=== PATIENT | female | born 1990 | race Caucasian/White ===

== ENCOUNTER → 2018-06-15 16:27 | Observation (INO) ==
[2018-06-15 14:57] LABS: Bilirubin,Urine Negative (Negative); Blood,Urine Negative (Negative); Clarity,Urine Cloudy (Clear); Color,Urine Yellow (Yellow); Glucose,Urine (UA) Normal (Normal); Ketones,Urine Negative (Negative); Leukocyte Esterase,Urine Trace (Negative); Nitrite,Urine Negative (Negative); Protein,Urine Negative (Neg-Trace); Specific Gravity,Urine 1.008 (1.010-1.025); Urobilinogen,Urine Normal (Normal)
[2018-06-15 15:00] LABS: Hyaline Casts,Urine None Seen per lpf (None-Few); RBC,Urine 0-3 per hpf (0-3); WBC,Urine 0-3 per hpf (0-3)
[2018-06-15 15:08] LABS: Amphetamine Screen,Urine Negative ng/mL (Cutoff=1000); Barbiturate Screen,Urine Negative ng/mL (Cutoff=200); Benzodiazepines Screen,Urine Negative ng/mL (Cutoff=200); Cannabinoid Screen,Urine Positive ng/mL (Cutoff = 50); Cocaine Screen,Urine Negative ng/mL (Cutoff= 300); Opiate Screen,Urine Negative ng/mL (Cutoff=300); Phencyclidine Screen,Urine Negative ng/mL (Cutoff=25)
[2018-06-15 15:35] LABS: Squamous Epithelial Cell,Urine Moderate per lpf (None-Few)
[2018-06-15 15:36] LABS: Bacteria,Urine Moderate per hpf (None-Few)
--- NOTE | 2018-06-15 16:25 | OB/GYN Progress Note ---
Date of Encounter: 06/15/18 Time of Encounter: 16:19 - Assessment and Plan (1) Morbidly obese Current Visit: Yes Status: Acute (2) complicated by subutex maintenance, antepartum Current Visit: Yes Status: Acute (3) Marijuana abuse Current Visit: Yes Status: Acute (4) 35 weeks gestation of Current Visit: Yes Status: Acute Discharge home with labor precautions. (5) Tobacco abuse Current Visit: Yes Status: Acute (6) Pelvic pressure in , antepartum Current Visit: Yes Status: Acute No contractions, VB, LOF. Comfort measures discussed. Discharge home with precautions. Subjective - Subjective Principal diagnosis: Vaginal pressure Interval history: 28 y/o presenting at 35w3d with c/o pelvic pressure that she states she has had for over a week. Denies LOF, VB, or contractions. Reports good FM. Antepartum ROS: new complaints, movement normal, no loss of fluid, no vaginal bleeding, no contractions Objective - Vital Signs Vital Signs: Intake and Output 06/15/18 06/15/18 06/15/18 07:59 15:59 23:59 Other: Weight 168 kg Patient Weight 06/15/18 23:59 Weight 168 kg - Exam FHR: category 1 FHR comments: NST reactive, FHR baseline 135bpm Auscultation: bilateral: normal Abdomen: Present: normal appearance, soft, gravid - Labs Labs: Abnormal lab results Urine Clarity Cloudy (Clear) A 06/15/18 14:46 Ur Specific [place] 1.008 (1.010-1.025) L 06/15/18 14:46 Ur Leukocyte Esterase Trace (Negative) H 06/15/18 14:46 Ur Squamous Epith Cells Moderate per lpf (None-Few) H 06/15/18 14:46 Urine Bacteria Moderate per hpf (None-Few) H 06/15/18 14:46 Ur Culture Indicated? YES (NO) A 06/15/18 14:46 U Marijuana (THC) Screen Positive ng/mL (Cutoff = 50) H 06/15/18 14:46
== END | disposition home or self-care (01) ==
LOC: 1NENULAB
PROVIDERS: ADMIT Registered Nurse; ATTEND Registered Nurse

== ENCOUNTER 2018-07-13 11:08 | Inpatient (IN) ==
--- NOTE | 2018-07-13 11:52 | Anesthesia Evaluation PreOp ---
Date of Encounter: 07/13/18 Time of Encounter: 11:50 - Past History Planned Operation: c section Cardiac History: Denies any Significant Hx Pulmonary History: Smoker (2 ppd), Pack/yr (12) PHYSICAL THERAPY ASSISTANT History: Seizures (3 years ago, not reported to physician) Other Medical History: Thyroid, GERD Anesthesia History: Past Anesthesia (BMT Adenoids) : Yes Test: Positive Alcohol Use: none Drug use: opiates (subutex 12 months), marijuana (daily) Medications and Allergies Albuterol Sulfate [Proair Respiclick] 1 - 2 puff IH Q4-6H PRN 10/03/15 [History] Gabapentin [Neurontin] 600 mg PO QID 10/03/15 [History] Levothyroxine [Synthroid] 150 mcg PO QAM 10/03/15 [History] Diclegis Dr 10-10 mg Tablet 2 tab PO DAILY 06/15/18 [History] Folic Acid 4 tab PO DAILY 06/15/18 [History] Vitamins 1 tab PO DAILY 06/15/18 [History] Subutex 4 mg SL DAILY 06/15/18 [History] Subutex 8 mg SL BID 06/15/18 [History] Allergy/AdvReac Type Severity Reaction Status Date / Time tramadol AdvReac Itching Verified 10/03/15 20:14 - Meds/Allergy Pre-op Review Medications Reviewed: Yes Allergies Reviewed: Yes Beta Blockers on Current Med List: No Anesthesia Exam see nsg note Height: 5'8" Weight: 166 kg NPO (# of Hours): 8 Pain Scale: 2 Pain Scale Used: Numeric (1 - 10) - HEENT Pupil (Motor): Pupils equal Mallampati: III Teeth: Missing, Poor dentition Oral Opening: Greater than 3 - PHYSICAL THERAPY ASSISTANT LOC: Oriented PHYSICAL THERAPY ASSISTANT Motor: Normal RUE, Normal LUE, Normal RLE, Normal LLE, Normal Face PHYSICAL THERAPY ASSISTANT Sensory: Normal: RUE, LUE, RLE, LLE, Face - Cardiac Rhythm: Regular Murmur: None - Pulmonary Breath Sounds: bilateral Rhonchi Respiratory Effort: Symmetrical Anesthesia Assess/Plan ASA Score: 3 (MO, smoker, thyroid) Level of consciousness: Cooperative Anesthetic Plan: Spinal Autologous Blood: No Monitoring Plan: Standard Monitors Recovery Plan: PACU (risks discussed questions answered, consented)
[2018-07-13] MEDS ORDERED: Ipratropium/Albuterol Neb 3 ML IH ONE (12:01)
[2018-07-13] MEDS ORDERED: Famotidine 20 MG/2 ML VIAL IVP ONE (12:24)
[2018-07-13] MEDS ORDERED: Metoclopramide 10 MG/2 ML VIAL IVP ONE (12:24)
[2018-07-13] MEDS ORDERED: CeFAZolin Syr 3,000MG/30 ML 3,000 MG/30 ML SYRINGE IVPB ONE (12:24)
[2018-07-13] MEDS ORDERED: Ringers Solution, Lactated 1,000 ML IVC ONE (12:24)
[2018-07-13] MEDS ORDERED: Ringers Solution, Lactated 1,000 ML IVC SCH (12:30)
[2018-07-13] MEDS ORDERED: Ringers Solution, Lactated 1,000 ML ONE (12:36)
--- NOTE | 2018-07-13 13:16 | OB/GYN History & Physical ---
Date of Encounter: 07/13/18 Time of Encounter: 13:14 Assessment and Plan (1) 39 weeks gestation of Current visit: Yes Status: Acute (2) Gestational diabetes Current visit: Yes Status: Acute Good BS control Qualifiers: Gestational diabetes mellitus control: diet-controlled Trimester: third trimester Qualified Code(s): O24.410 - Gestational diabetes mellitus in , diet controlled (3) complicated by subutex maintenance, antepartum Current visit: No Status: Acute History of Present Illness Chief complaint: Here for repeat and BPS HPI: Ms. Moeller is a 28 year old female female presents for repeat and BPS. Pt's preg complicated by h/o narcotics addiction on Suboxone, hypothyroid and increased BMI with gestational DM. She has had good BS control. She had normal level 2 u/s. Past Med Surg Social Fam HX - Past Medical History Source: patient Medical history: hyperlipidemia, thyroid disease, other Additional medical history: HYPOTHYROID, HIGH CHOLESTEROL, Psychiatric history: no psych history - Past Surgical History Additional surgical history: TUBES IN EARS, ADENOIDS REMOVED - Social History Smoking Status: Current every day smoker Packs per day: 2 Smokeless Tobacco Status: No Alcohol use: none Drug use: opiates, marijuana - Family History Mother Living Status: Still Living Hx Family Cardiac Disorders: Yes Hx Family Endocrine Disorder: Yes (Thyroid, DM) Hx Family Medical Disorders: Yes (Bipolar, anxiety, depression) Obstetrical History - Pregnancies : 4 Medications and Allergies Albuterol Sulfate [Proair Respiclick] 1 - 2 puff IH Q4-6H PRN 10/03/15 [History] Gabapentin [Neurontin] 600 mg PO QID 10/03/15 [History] Levothyroxine [Synthroid] 150 mcg PO QAM 10/03/15 [History] Diclegis Dr 10-10 mg Tablet 2 tab PO DAILY 06/15/18 [History] Folic Acid 4 tab PO DAILY 06/15/18 [History] Vitamins 1 tab PO DAILY 06/15/18 [History] Subutex 8 mg SL BID 06/15/18 [History] Allergy/AdvReac Type Severity Reaction Status Date / Time cephalexin [From Keflex] AdvReac Difficulty Verified 07/13/18 12:27 Breathing tramadol AdvReac Itching Verified 10/03/15 20:14 Exam - Constitutional Constitutional: well developed, well nourished - HEENT HEENT: EOMI, PERRL - Neck Neck exam: full ROM - Lungs Respiratory exam: CTAB - Cardiovascular Cardiovascular exam: RRR - Extremities Extremities exam: full ROM Deep Tendon Reflex Grade: 2+ Normal Results All other labs normal.
[2018-07-13 13:39] LABS: Basophils # 0.1 K/mcL (0.0-0.2); Basophils % 0.6 %; Eosinophils # 0.1 K/mcL (0.0-0.6); Eosinophils % 0.6 %; Hematocrit 39.5 % (35.3-44.9); Hemoglobin 13.4 g/dL (11.5-15.4); Immature Granulocytes % 0.9 % (0-4); Lymphocytes # 2.8 K/mcL (0.6-4.6); Lymphocytes % 26.6 %; Mean Corpuscular HGB Conc 33.9 g/dL (31.6-35.5); Mean Corpuscular Hemoglobin 28.4 pg (28.0-33.3); Mean Corpuscular Volume 83.7 fL (83.0-100.0); Mean Platelet Volume 10.5 fL (9.4-12.4); Monocytes # 0.5 K/mcL (0.0-1.3); Monocytes % 4.7 %; Neutrophils # 6.9 K/mcL (1.6-8.9); Platelet Count 285 K/mcL (140-400); Red Blood Count 4.72 M/mcL (3.82-4.97); Red Cell Distribution Width 13.7 % (11.5-14.5); Segmented Neutrophils % 66.6 %
[2018-07-13] MEDS ORDERED: *HR* OxyCODONE Immed Rel 5 MG TABLET PO PRN (13:40)
[2018-07-13] MEDS ORDERED: *HR* Promethazine 25 MG/ML VIAL IVP PRN (13:40)
[2018-07-13] MEDS ORDERED: *HR* FentaNYL (PF) 100 MCG/2 ML VIAL IVP PRN (13:40)
--- NOTE | 2018-07-13 13:43 | Anesthesia Procedures ---
Date of Encounter: 07/13/18 Time of Encounter: 15:05 Procedures: Anesthesia - Epidural/Spinal Patient ID/Chart reviewed: Yes Patient examined: Yes OB Eval: Gestational age: 39 OB Eval: : 5 OB Eval: Hx Para: 4 OB Eval: Dilated at (cm): 2 OB Eval: Contractions: Non-stressed pattern Consent Obtained: Yes Supplemental Oxygen: Nasal Cannula Supplemental Oxygen Rate (L/min): 3 Site Prep: Aseptic Technique, Sterile prep and drape, 0.5% Chlorhexidine/Alcohol Patient position: upright Local Anesthetic: Lidocaine 1% Amount of Local Anesthetic used: 3 Interspace Used: L2-L3 Loss of Resistance (AIDEN): No Blood: No CSF: Yes Paresthesia: No Spinal Needle Gauge: 22 Spinal Dose: marcaine 12, duramorph 0.25, fentanyl 10 mcg Procedure: aseptic, hosea well, effective Vitals + FHT's: 130/80 114 fht 125
[2018-07-13] MEDS ORDERED: Clindamycin 900 MG/50 ML 900 MG/50 ML IV.SOLN IVPB ONE (13:49)
[2018-07-13 14:03] LABS: Amphetamine Screen,Urine Negative ng/mL (Cutoff=1000); Barbiturate Screen,Urine Negative ng/mL (Cutoff=200); Benzodiazepines Screen,Urine Negative ng/mL (Cutoff=200); Cannabinoid Screen,Urine Positive ng/mL (Cutoff = 50); Cocaine Screen,Urine Negative ng/mL (Cutoff= 300); Opiate Screen,Urine Negative ng/mL (Cutoff=300); Phencyclidine Screen,Urine Negative ng/mL (Cutoff=25)
[2018-07-13] MEDS ORDERED: Acetaminophen IV 1,000 MG/100 ML INFUS..BTL IVPB ONE (15:07)
[2018-07-13] MEDS ORDERED: *HR* Morphine Sulfate/PF 10 MG/10 ML AMPUL ONE (15:14)
[2018-07-13] MEDS ORDERED: *HR* Oxytocin 10 UNIT/ML VIAL IM ONE (15:14)
[2018-07-13] MEDS ORDERED: Lidocaine -MPF 2% 5 ML VIAL ONE (15:14)
[2018-07-13] MEDS ORDERED: *HR* Phenylephrine 10 MG/ML VIAL ONE (15:14)
[2018-07-13] MEDS ORDERED: *HR* FentaNYL (PF) 100 MCG/2 ML VIAL ONE ×3 (15:14→15:37)
[2018-07-13] MEDS ORDERED: *HR* Propofol 200 MG/20 ML VIAL IVP ONE (15:38)
--- NOTE | 2018-07-13 16:30 | OB/GYN Procedure Note ---
Section - Date of procedure: 07/13/18 Preop diagnosis: breech, other (Desires permanent sterilization) Post-op diagnosis: same Procedure: primary low transverse, bilateral tubal ligation Surgeon: Ever Stokes Blood Loss: 500 Was there an bankruptcy legal assistant present: No Anesthesia Type: Spinal section complications: none Disposition: L&D Recovery Room - (s) A Infant Delivery Date: 07/13/18 Delivery Time: 16:31 Presentation: breech Gender: Male Viability: Viable Pounds: 8 Ounces: 2 at 1 minute: 8 at 5 minutes: 9 Placenta: spontaneous Cord: 3 umbilical vessels - Narrative Narrative: Patient is a 28-year-old 4 para 2 female presents at 39 weeks gestation with breech infant large for gestational age. She is here today for primary section as well as tubal ligation she was aware operative risks permanence of the tubal and signed appropriate consent. Description procedure: Patient was taken operating room where spinal anesthesia was administered. She is prepped draped in usual sterile fashion. Bladder was drained of clear urine with Vaughn catheter. Scalpel was used to make a incision Pfannenstiel manner from the anterior superior iliac spine on the left of the right I did state above the panniculus fold however I did get somewhat lower than usual to stay away from several skin sores she had. This was taken down the rectus fascia which was incised the midline. Fascial incision was extended bilaterally. Plane was developed and rectus muscle superiorly and distally rectus muscle divided midline peritoneum was entered sharp blade. Bladder blade was placed and bladder flap was developed along the lower uterine segment. Scalpel was used to make a low transverse uterine incision which was extended bluntly bilaterally. Membranes were ruptured of clear fluid and infant was delivered from breech presentation. Infant did initially try to get her back down transverse however was able to rotate to breech. It was delivered from yudelka breech presentation keeping head flexed at the delivery. Cord was clamped and cut oropharynx nasopharynx were suctioned of clear fluid and was taken to the warmer. weight was found to be 8 lbs. 10 oz. Apgars of 8 at 1 minute and 9 at 5 minutes. Placenta was then delivered manually without difficulty. Uterus was closed 0 Vicryl running lock stitch. Second emptying layer was placed for most of the first layer to obtain hemostasis. Approximately 3 cm segment of each fallopian tube was double ligated with oh plain catgut suture and 3 similar segment of each tube was resected. Fascia was closed with oh loop PDS in a running manner. After closure the fascia again irrigation was performed hemostasis was ensured. Deep subcutaneous tissue was reapproximated with 0 plain catgut suture in interrupted manner. Skin edges reapproximated with chapis. All sponge and counts are correct patient was taken recovery in good condition.
[2018-07-13] MEDS ORDERED: SODIUM CHLORIDE 0.9% IVPB ONE (17:00)
[2018-07-13] MEDS ORDERED: GENTAMICIN IVPB ONE (17:00)
[2018-07-13] MEDS ORDERED: Oxytocin 20 units/ LR 1000 mL 20 UNIT/1,000 ML BAG IVC ONE (17:01)
[2018-07-13] MEDS ORDERED: Sennosides 8.6 MG TABLET PO PRN (18:32)
[2018-07-13] MEDS ORDERED: Ondansetron 4 MG/2 ML VIAL IVP PRN (18:32)
[2018-07-13] MEDS ORDERED: 0.9 % Sodium Chloride 1,000 ML IVC SCH (18:32)
[2018-07-13] MEDS ORDERED: Oxytocin 20 units/ LR 1000 mL 20 UNIT/1,000 ML BAG IVC SCH ×2 (18:32)
[2018-07-13] MEDS ORDERED: Metoclopramide 10 MG/2 ML VIAL IVP PRN (18:32)
[2018-07-13] MEDS: Acetaminophen 325 MG TABLET PO PRN (20:01)
[2018-07-13] MEDS: Azithromycin 250 MG TABLET PO SCH (20:01)
[2018-07-13] MEDS: Gabapentin 300 MG CAPSULE PO SCH (20:01)
--- NOTE | 2018-07-13 20:11 | Anesthesia Evaluation Post Op ---
Date of Encounter: 07/13/18 Time of Encounter: 20:09 - Vital Signs Vital Signs: Vital Signs/O2 Sat, Most Current Pulse Resp BP Pulse Ox 98 16 125/81 95 07/13/18 18:40 07/13/18 18:40 07/13/18 18:40 07/13/18 18:40 - Lungs Lungs: Rhonchi - Airway Airway: Non-obstructed - Cardiovascular Regular Rate - Mental Status Mental Status: Alert & Oriented, Answers Appropriately - Pain Pain Scale: 5 (meds ordered per Dr Cantu) Pain Scale used: Numeric (1 - 10) - Nausea Vomiting Nausea Vomiting: Not Present - Hydration Hydration: NPO - Discharge PostOp Status: Discharge Patient to home (fully awake no anesthetic complications)
[2018-07-13] MEDS ORDERED: NON-FORMULARY MEDICATION 1 EACH EACH (Subutex 8 MG) SL SCH (21:00)
[2018-07-13] MEDS: *HR* Buprenorphine HCl 2 MG SUBLINGUAL TABLET SL SCH (21:30)
[2018-07-14 05:45] LABS: Basophils # 0.1 K/mcL (0.0-0.2); Basophils % 0.4 %; Eosinophils % 0.2 %; Hematocrit 32.3 % (35.3-44.9); Immature Granulocytes % 0.4 % (0-4); Lymphocytes % 14.4 %; Mean Corpuscular HGB Conc 33.4 g/dL (31.6-35.5); Mean Corpuscular Hemoglobin 28.3 pg (28.0-33.3); Mean Corpuscular Volume 84.6 fL (83.0-100.0); Mean Platelet Volume 10.6 fL (9.4-12.4); Monocytes # 0.8 K/mcL (0.0-1.3); Monocytes % 5.5 %; Neutrophils # 10.8 K/mcL (1.6-8.9); Platelet Count 251 K/mcL (140-400); Red Blood Count 3.82 M/mcL (3.82-4.97); Segmented Neutrophils % 79.1 %
[2018-07-14 05:49] LABS: Hemoglobin 10.8 g/dL (11.5-15.4)
[2018-07-14] MEDS: Acetaminophen 325 MG TABLET PO PRN (05:59)
[2018-07-14] MEDS: Ibuprofen 600 MG TABLET PO PRN ×3 (05:59→20:29)
[2018-07-14] MEDS: Gabapentin 300 MG CAPSULE PO SCH ×4 (08:46→20:28)
[2018-07-14] MEDS: Prenatal Vit/FA 1 EACH TABLET PO SCH (08:46)
[2018-07-14] MEDS: *HR* Buprenorphine HCl 2 MG SUBLINGUAL TABLET SL SCH ×3 (08:48→20:29)
--- NOTE | 2018-07-14 09:18 | OB/GYN Progress Note ---
Date of Encounter: 07/14/18 Time of Encounter: 09:14 - Assessment and Plan (1) delivery delivered Current Visit: Yes Status: Acute Continue routine /postop care Anticipate discharge home tomorrow (2) complicated by subutex maintenance, antepartum Current Visit: Yes Status: Acute (3) Tobacco abuse Current Visit: Yes Status: Acute Subjective - Subjective Principal diagnosis: S/P repeat C/S Interval history: S/P RC/S Day 1 Pain is well controlled - currently on Subutex from an outside clinic; encouraged patient to contact provider for pain control prior to discharge Lochia light with occasional clot Tolerating regular diet; passing flatus Voiding without difficulty VSS Anticipate discharge home tomorrow POC per consult with Dr Galarza Patient reports: appetite normal, voiding normally, pain well controlled, ambulating normally [place]: doing well, bottle feeding Objective - Vital Signs Latest vital signs: Vital Signs Temp Pulse Resp BP Pulse Ox 07/14/18 08:10 97.8 F 92 12 105/74 97 07/14/18 07:57 16 07/14/18 06:10 97.6 F 100 16 102/72 96 07/14/18 00:50 98.3 F 106 14 96/67 94 07/13/18 22:20 98.5 F 110 14 94/73 95 07/13/18 21:15 98.6 F 103 14 99/67 94 07/13/18 20:00 97.6 F 106 16 131/67 93 07/13/18 19:25 97.5 F L 90 16 131/67 93 07/13/18 18:40 98 16 125/81 95 Intake and Output 07/13/18 07/14/18 07/14/18 23:59 07:59 15:59 Output Total 1050 / 1050 Balance -1050 / -1050 Output: Catheter 1050 / 1050 Other: Weight 163.8 kg - Exam Lungs: bilateral: normal Chest: Normal S1, Normal S2 Extremities: Present: normal Abdomen: Present: normal appearance, soft. Absent: gravid, tenderness Incision: Present: normal, dry (Naomi in place), intact Uterus: Present: normal, firm Fundal Height: 0 (@U) - Labs Labs: Laboratory Results - last 24 hr 07/13/18 07/13/18 07/14/18 13:20 13:20 05:34 WBC 10.4 13.6 H RBC 4.72 3.82 Hgb 13.4 10.8 L D Hct 39.5 32.3 L MCV 83.7 84.6 MCH 28.4 28.3 MCHC 33.9 33.4 RDW 13.7 14.0 Plt Count 285 251 MPV 10.5 10.6 Immature Gran % 0.9 0.4 Seg Neutrophils % 66.6 79.1 Lymphocytes % 26.6 14.4 Monocytes % 4.7 5.5 Eosinophils % 0.6 0.2 Basophils % 0.6 0.4 Neutrophils # 6.9 10.8 H Lymphocytes # 2.8 2.0 Monocytes # 0.5 0.8 Eosinophils # 0.1 0.0 Basophils # 0.1 0.1 Urine Opiates Screen Negative Ur Barbiturates Screen Negative Ur Phencyclidine Scrn Negative Ur Amphetamines Screen Negative U Benzodiazepines Scrn Negative Urine Cocaine Screen Negative U Marijuana (THC) Screen Positive H Ur Drug Screen Interp See Below
[2018-07-14] MEDS: Simethicone 80 MG TAB.CHEW PO PRN ×2 (13:57→20:29)
[2018-07-14] MEDS: Azithromycin 250 MG TABLET PO SCH (18:32)
[2018-07-15] MEDS: Prenatal Vit/FA 1 EACH TABLET PO SCH (08:22)
[2018-07-15] MEDS: *HR* Buprenorphine HCl 2 MG SUBLINGUAL TABLET SL SCH ×2 (08:23→15:53)
[2018-07-15] MEDS: Gabapentin 300 MG CAPSULE PO SCH ×4 (08:23→21:10)
[2018-07-15] MEDS: Ibuprofen 600 MG TABLET PO PRN ×2 (08:48→17:05)
--- NOTE | 2018-07-15 11:39 | Discharge Summary ---
Date of Encounter: 07/15/18 Time of Encounter: 11:36 - Discharge Diagnosis (1) Morbidly obese Priority: Secondary Status: Acute Comments: Angelia dressing in place. Patient aware to leave in place for [address] Cantu. Advised to send patient home on antibiotic therapy for 7 days. Follow-up in 2 weeks for incision check. (2) complicated by subutex maintenance, antepartum Priority: Secondary Status: Acute Comments: Patient receives her Subutex from a provider in [place]. She is to call their office today to see if she is able to get medication filled. Anticipate discharge today if she is able to get her medication. (3) Gestational diabetes Priority: Secondary Status: Acute Comments: Follow-up in 4-6 weeks for 2 hour glucose tolerance test. Qualifiers: Gestational diabetes mellitus control: diet-controlled Trimester: third trimester Qualified Code(s): O24.410 - Gestational diabetes mellitus in , diet controlled (4) delivery delivered Priority: Primary Status: Acute Comments: Continue routine care. Patient meeting day 2 milestones. Voiding without difficulty. No bowel movement yet. Tolerating regular diet. Passing flatus. Pain well-controlled with Motrin and patient's regular Subutex dosing. Possible discharge today if patient is able to get her Subutex from her provider who is in [place]. - Discharge Medications Prescriptions: Ibuprofen [Motrin] 600 mg PO Q6HR PRN #60 tablet PRN Reason: Cramping Azithromycin [Zithromax] 500 mg PO Q24H #7 tablet Clindamycin [Cleocin] 300 mg PO Q8H #21 capsule Home Medications: Albuterol Sulfate [Proair Respiclick] 1 - 2 puff IH Q4-6H PRN 10/03/15 [History] Gabapentin [Neurontin] 600 mg PO QID 10/03/15 [History] Levothyroxine [Synthroid] 150 mcg PO QAM 10/03/15 [History] Vitamins 1 tab PO DAILY 06/15/18 [History] Subutex 8 mg SL BID 06/15/18 [History] Acetaminophen [Tylenol] 325 mg PO Q6HR PRN tablet 07/15/18 [Rx] Azithromycin [Zithromax] 500 mg PO Q24H #7 tablet 07/15/18 [Rx] Clindamycin [Cleocin] 300 mg PO Q8H #21 capsule 07/15/18 [Rx] Docusate [Colace] 100 mg PO BID capsule 07/15/18 [Rx] Ibuprofen [Motrin] 600 mg PO Q6HR PRN #60 tablet 07/15/18 [Rx] Simethicone [Gas-X] 80 mg PO TID PRN tab.chew 07/15/18 [Rx] Allergies/Adverse Reactions: Allergy/AdvReac Type Severity Reaction Status Date / Time cephalexin [From Keflex] AdvReac Difficulty Verified 07/13/18 12:27 Breathing tramadol AdvReac Itching Verified 10/03/15 20:14 Data Procedures and tests throughout hospitalization: Laboratory Tests 07/13/18 07/13/18 07/14/18 13:20 13:20 05:34 WBC 10.4 13.6 H RBC 4.72 3.82 Hgb 13.4 10.8 L D Hct 39.5 32.3 L MCV 83.7 84.6 MCH 28.4 28.3 MCHC 33.9 33.4 RDW 13.7 14.0 Plt Count 285 251 MPV 10.5 10.6 Immature Gran % 0.9 0.4 Seg Neutrophils % 66.6 79.1 Lymphocytes % 26.6 14.4 Monocytes % 4.7 5.5 Eosinophils % 0.6 0.2 Basophils % 0.6 0.4 Neutrophils # 6.9 10.8 H Lymphocytes # 2.8 2.0 Monocytes # 0.5 0.8 Eosinophils # 0.1 0.0 Basophils # 0.1 0.1 Urine Opiates Screen Negative Ur Barbiturates Screen Negative Ur Phencyclidine Scrn Negative Ur Amphetamines Screen Negative U Benzodiazepines Scrn Negative Urine Cocaine Screen Negative U Marijuana (THC) Screen Positive H Ur Drug Screen Interp See Below Hep Bs Antigen 07/14/18 09:13 WBC RBC Hgb Hct MCV MCH MCHC RDW Plt Count MPV Immature Gran % Seg Neutrophils % Lymphocytes % Monocytes % Eosinophils % Basophils % Neutrophils # Lymphocytes # Monocytes # Eosinophils # Basophils # Urine Opiates Screen Ur Barbiturates Screen Ur Phencyclidine Scrn Ur Amphetamines Screen U Benzodiazepines Scrn Urine Cocaine Screen U Marijuana (THC) Screen Ur Drug Screen Interp Hep Bs Antigen Nonreactive Date of admission: 07/13/18 11:08 Primary care physician: PCP NONE Consults: 07/13/18 18:32 Consult to Director Of Distribution (W&C) [CONS] Routine Reason For Exam: Reason for SW Consult: narcotics addiction Discharging clinician: Elle Elias Anticipated date of discharge: 07/15/18 - Patient Status Disposition: Home, Self-Care Condition: Good Functional capacity at discharge: independent ambulation Overall status at discharge: patient is progressing back to baseline - Discharge Instructions Follow Up With: NONE,PCP [Primary Care Provider] - Ever Cantu MD [Partnered Physician] - Hospital Course Reason for admission: section Delivery: section Episiotomy: none Laceration: none Other procedures: tubal ligation complications: none Discharge diagnosis: IUP at term delivered baby: male Hospital course: Meeting day 2 milestones. Pain well controlled. Voiding without difficulty, passing flatus, tolerating regular diet. Would like to be discharged home today. Will order conditional discharge if patient is able to acquire her Subutex from the prescribing provider who is in [place]. She is unable to obtain her medication we will discharge her tomorrow. Assessment and Plan (1) 39 weeks gestation of Current visit: Yes Status: Acute (2) Gestational diabetes Current visit: Yes Status: Acute Good BS control Qualifiers: Gestational diabetes mellitus control: diet-controlled Trimester: third trimester Qualified Code(s): O24.410 - Gestational diabetes mellitus in , diet controlled (3) complicated by subutex maintenance, antepartum Current visit: No Status: Acute History of Present Illness Chief complaint: Here for repeat and BPS HPI: Ms. Moeller is a 28 year old female female presents for repeat and BPS. Pt's preg complicated by h/o narcotics addiction on Suboxone, hypothyroid and increased BMI with gestational DM. She has had good BS control. She had normal level 2 u/s. Time Attestation: Total time spent providing and/or coordinating discharge services: Time Spent: Less than 30 minutes - VTE Documentation of Mechanical Device: Intermittent pneumatic compression device Exam - Constitutional Vitals: Temp Pulse Resp BP Pulse Ox 97.3 F L 100 16 111/71 94 07/15/18 07:30 07/15/18 07:30 07/15/18 07:30 07/15/18 07:30 07/14/18 20:07 General appearance IM: A&O X 3, morbidly obese, pleasant, no acute distress, answers questions appropriately - Respiratory Respiratory exam: Present: CTAB - Cardiovascular Cardiovascular exam IM: Present: RRR, +S1, +S2 - GI/Abdominal Incision: dressed (ANGELIA dressing) - Rectal Rectal exam: deferred - Uterine Tone: Firm Uterus Position: At Umbilicus - Extremities Exam Extremities exam IM: Present: normal capillary refill, normal inspection (Mulitple small, round scabbed lesions noted over entire body.), pedal edema, warm - Neurological Exam Neurological exam: alert, normal gait, oriented X3
[2018-07-15] MEDS: Azithromycin 250 MG TABLET PO SCH (18:20)
[2018-07-15] MEDS: *HR* Buprenorphine HCl 8 MG TAB.SUBL SL SCH (21:02)
[2018-07-16 07:52] VITALS: BP 101/70
--- NOTE | 2018-07-16 08:59 | Event Note ---
<ShereenMacie Douglas - Last Filed: 07/16/18 09:00> Date of Encounter: 07/16/18 Time of Encounter: 08:50 Patient is a 28 y/o female status post repeat LT and bilateral BPS for LGA infant in persistent breech position. She is day 3 post op. Will be discharged today as conditional discharge requirements now met and she will be invited to guest as baby on 5 day hold. She was waiting on subutex from outside provider which [facility] will be bringing her today. States that pain is well controlled, she is ambulating without dizziness, normal appetite, voiding well without dysuria, passing flatus. Lochia is light. Denies nausea, vomiting, fever, chills, chest pain, shortness of breath, or calf pain. Healthy male doing well, formula feeding. BW 8lb 2oz with 8/9 on 5 day hold. Exam Cardio: RRR, no murmurs, rubs or gallops Pulm: CTAB, no wheezes, rales or rhonchi Abdomen: soft, non tender, normal bowel sounds in all 4 quadrants. Dressing dry, intact, Naomi in place. Uterus is 2 fingers below umbilicus Extremities: Non tender, 1+ pedal edema, pulses intact and symmetrical Skin: multiple scabbed crusted lesions on torso, abdomen, bilateral upper and lower extremities. No induration or fluctuance A/P See previous discharge summary <Amena Copeland - Last Filed: 07/16/18 09:47> Date of Encounter: 07/16/18 I have seen this patient and agree this this assessment. Dominique Copeland CNM
[2018-07-16] MEDS: Prenatal Vit/FA 1 EACH TABLET PO SCH (09:38)
[2018-07-16] MEDS: *HR* Buprenorphine HCl 8 MG TAB.SUBL SL SCH (09:40)
[2018-07-16] MEDS: Ibuprofen 600 MG TABLET PO PRN (09:40)
[2018-07-16] MEDS: Gabapentin 300 MG CAPSULE PO SCH (09:42)
== END 2018-07-16 09:57 | disposition home or self-care (01) | DRG 540 ==
LOC: 1NENULAB 11:08 → 1NENUOBS 18:32
PROVIDERS: ADMIT Obstetrics & Gynecology; ATTEND Obstetrics & Gynecology

== ENCOUNTER 2018-07-23 20:57 | Observation (INO) ==
[2018-07-23] MEDS ORDERED: Piperacillin/Tazobactam 3.375 GM in 0.9 % Sodium Chloride Mini Bag 100 ML IVPB ONE (21:18)
[2018-07-23] MEDS ORDERED: Isovue-370 500 ML INFUS..BTL IV ONE (21:23)
--- NOTE | 2018-07-23 21:39 | Emergency Department Note ---
Disposition Clinical Impression: Postoperative wound infection Disposition: Still a Patient Referrals: Aj Inman DO [Primary Care Provider] - Forms: ED Satisfaction Letter Time of Disposition: 22:26 General Adult HPI - General Chief complaint: ED Wound/Laceration Stated complaint: "Poss. Infection at Site" Time Seen by Provider: 07/23/18 21:06 Source: patient Limitations: no limitations - History of Present Illness Pain Scale: 0 - Related Data Home Medications Medication Instructions Recorded Confirmed RX: Albuterol Sulfate [Proair 1 - 2 puff IH Q4-6H PRN 10/03/15 07/13/18 Respiclick] RX: Gabapentin [Neurontin] 600 mg PO QID 10/03/15 07/13/18 RX: Levothyroxine [Synthroid] 150 mcg PO QAM 10/03/15 07/13/18 Vitamins 1 tab PO DAILY 06/15/18 07/13/18 Subutex 8 mg SL BID 06/15/18 07/13/18 Previous Rx's Medication Instructions Recorded RX: Acetaminophen [Tylenol] 325 mg PO Q6HR PRN tablet 07/15/18 RX: Azithromycin [Zithromax] 500 mg PO Q24H #7 tablet 07/15/18 RX: Clindamycin [Cleocin] 300 mg PO Q8H #21 capsule 07/15/18 RX: Docusate [Colace] 100 mg PO BID capsule 07/15/18 RX: Ibuprofen [Motrin] 600 mg PO Q6HR PRN #60 tablet 07/15/18 RX: Simethicone [Gas-X] 80 mg PO TID PRN tab.chew 07/15/18 Allergies Allergy/AdvReac Type Severity Reaction Status Date / Time cephalexin [From Keflex] AdvReac Difficulty Verified 07/13/18 12:27 Breathing tramadol AdvReac Itching Verified 10/03/15 20:14 Past Medical History - Past Medical History Medical history: Reports: hyperlipidemia, thyroid disease, other Psychiatric history: Reports: no psych history - Social History Smoking Status: Current every day smoker Smokeless Tobacco Status: No Alcohol use: Reports: none Drug use: Reports: opiates, marijuana Physical Exam - General Limitations: no limitations General appearance: alert, in no apparent distress Course Vital Signs Temperature 98.1 F 07/23/18 20:59 Pulse Rate 100 07/23/18 20:59 Respiratory Rate 20 07/23/18 20:59 Blood Pressure 133/71 07/23/18 20:59 O2 Sat by Pulse Oximetry 98 07/23/18 20:59 Temperature 98.1 F 07/23/18 21:05 Pulse Rate 98 07/23/18 22:16 Respiratory Rate 20 07/23/18 21:05 Blood Pressure 109/65 07/23/18 22:16 O2 Sat by Pulse Oximetry 95 07/23/18 22:10 Oxygen Delivery Oxygen Delivery Room Air Medical Decision Making - Lab Data Result diagrams: 07/23/18 22:03 Lab Results 07/23/18 07/23/18 Range/Units 22:03 22:17 WBC 15.7 H (4.3-11.1) K/mcL RBC 3.28 L (3.82-4.97) M/mcL Hgb 9.1 L (11.5-15.4) g/dL Hct 28.0 L (35.3-44.9) % MCV 85.4 (83.0-100.0) fL MCH 27.7 L (28.0-33.3) pg MCHC 32.5 (31.6-35.5) g/dL RDW 13.4 (11.5-14.5) % Plt Count 410 H (140-400) K/mcL MPV 9.1 L (9.4-12.4) fL Immature Gran % 0.6 (0-4) % Seg Neutrophils % 78.7 % Lymphocytes % 15.3 % Monocytes % 4.6 % Eosinophils % 0.4 % Basophils % 0.4 % Neutrophils # 12.3 H (1.6-8.9) K/mcL Lymphocytes # 2.4 (0.6-4.6) K/mcL Monocytes # 0.7 (0.0-1.3) K/mcL Eosinophils # 0.1 (0.0-0.6) K/mcL Basophils # 0.1 (0.0-0.2) K/mcL Nucleated RBCs/100 WBC 0.1 H (0) /100 WBC VBG pH 7.40 (7.32-7.42) pH Units VBG pCO2 40 L (41-51) mmHg VBG pO2 81 H (25-50) mmHg VBG HCO3 25 (21-27) mEq/L Attestation Statement - Attestation Attestation: I examined this patient and my medical decision-making was reviewed with the Resident Physician. I agree with the documented findings, disposition and treatment plan as described except to the extent set forth below. Patient presents to the ED with a postoperative infection. Patient is 10 days status post for breech presentation. She was discharged with a yesi drain. She has had a large amount of foul-smelling drainage and now has erythema extending up over her abdomen. On examination there is erythema extending just below the umbilicus. The wound is closed. There is purulent hilary inage from the wound. Gary are intact. She is afebrile. Plan. This appears to be a wound infection. We will check basic labs and CT scan. Starting IV antibiotic. She started been discussed with [employer] who agrees with the plan. Starting vancomycin and Zosyn. Wound culture sent. Patient signed out to Dr. Elizabeth.
[2018-07-23 22:18] LABS: Basophils # 0.1 K/mcL (0.0-0.2); Basophils % 0.4 %; Eosinophils # 0.1 K/mcL (0.0-0.6); Eosinophils % 0.4 %; Hemoglobin 9.1 g/dL (11.5-15.4); Immature Granulocytes % 0.6 % (0-4); Lymphocytes # 2.4 K/mcL (0.6-4.6); Lymphocytes % 15.3 %; Mean Corpuscular HGB Conc 32.5 g/dL (31.6-35.5); Mean Corpuscular Hemoglobin 27.7 pg (28.0-33.3); Mean Corpuscular Volume 85.4 fL (83.0-100.0); Mean Platelet Volume 9.1 fL (9.4-12.4); Monocytes # 0.7 K/mcL (0.0-1.3); Monocytes % 4.6 %; Neutrophils # 12.3 K/mcL (1.6-8.9); Nucleated Red Blood Cells 0.1 /100 WBC (0); Platelet Count 410 K/mcL (140-400); Red Blood Count 3.28 M/mcL (3.82-4.97); Red Cell Distribution Width 13.4 % (11.5-14.5); Segmented Neutrophils % 78.7 %
[2018-07-23] MEDS ORDERED: 0.9 % Sodium Chloride 1,000 ML IVC ONE (22:20)
[2018-07-23 22:21] LABS: VBG HCO3 25 mEq/L (21-27); VBG PCO2 40 mmHg (41-51); VBG PO2 81 mmHg (25-50)
--- NOTE | 2018-07-23 22:21 | Emergency Department Note ---
Disposition Clinical Impression: Postoperative wound infection Disposition: Admitted As Inpatient Condition: Fair Time of Disposition: 23:37 General Adult HPI - General Chief complaint: ED Wound/Laceration Stated complaint: "Poss. Infection at Site" Time Seen by Provider: 07/23/18 21:06 Source: patient Mode of arrival: ambulatory Limitations: no limitations Nursing Notes Reviewed: Yes Vital Signs Reviewed: Yes - History of Present Illness Pain Scale: 0 - Related Data Home Medications Medication Instructions Recorded Confirmed RX: Albuterol Sulfate [Proair 1 - 2 puff IH Q4-6H PRN 10/03/15 07/24/18 Respiclick] RX: Gabapentin [Neurontin] 600 mg PO QID 10/03/15 07/24/18 RX: Levothyroxine [Synthroid] 150 mcg PO QAM 10/03/15 07/24/18 Subutex 8 mg SL BID 06/15/18 07/24/18 Previous Rx's Medication Instructions Recorded RX: Azithromycin [Zithromax] 500 mg PO Q24H #7 tablet 07/15/18 RX: Clindamycin [Cleocin] 300 mg PO Q8H #21 capsule 07/15/18 Allergies Allergy/AdvReac Type Severity Reaction Status Date / Time cephalexin [From Keflex] AdvReac Difficulty Verified 07/24/18 03:12 Breathing tramadol AdvReac Itching Verified 07/24/18 03:12 All systems ED: reviewed and negative except as stated. Constitutional: Reports: fever Cardiovascular: Denies: chest pain Respiratory: Denies: dyspnea Gastrointestinal: Reports: abdominal pain, nausea, vomiting Past Medical History - Past Medical History Attestation: Yes The following information was validated with the patient. Source: patient Medical history: Reports: hyperlipidemia, thyroid disease, other Psychiatric history: Reports: no psych history - Social History Smoking Status: Current every day smoker Smokeless Tobacco Status: No Alcohol use: Reports: none Drug use: Reports: opiates, marijuana Physical Exam - General Limitations: no limitations General appearance: alert, in no apparent distress - Head Head exam: atraumatic, normocephalic, normal inspection - Eye Eye exam: Present: normal appearance, PERRL, EOMI - ENT ENT exam: normal exam, normal oropharynx, mucous membranes moist - Neck Neck exam: Present: normal inspection, full ROM, trachea midline - Chest Chest inspection: Present: normal inspection, symmetric chest wall rise - Respiratory Respiratory exam: Present: normal lung sounds bilaterally - Cardiovascular Cardiovascular exam: Present: normal rhythm, tachycardia, normal heart sounds - Abdominal Exam Abdominal exam: Present: other (Lower abdominal incision site with pus drainage, localized induration and cellulitis that spreads up to inferior umbilicus. No fluctuance appreciated. Area is tender to touch.) - Extremities Exam Extremities exam: Present: normal inspection, full ROM. Absent: tenderness, pedal edema - Neurological Exam Neurological exam: Present: alert, oriented X3 - Psychiatric Psychiatric exam: Present: normal affect, normal mood - Skin Skin exam: Present: warm, dry, intact, normal color Course Course Narrative: Patient was a sign out from previous team and Dr. vizcarra and Dr. Britton. Please see their notes for any additional detail. In summary, patient is here for post infection. She is around 10 days status post for breech presentation. She was discharged with a surgical site drain. She was also sent home with oral antibiotics. She has noted some foul smelling drainage and erythema developing around her surgical incision site. Redness has extended up to the umbilical region at this time. Physical exam shows induration around the surgical incision site, active pus drainage, erythema going up to the umbilical region. Previous team spoke with [employer] coach, Dr. Huizar, who requested CT abdomen and pelvis to assess for any fascial defect. Previous team and also ordered basic bloodwork, septic workup, they can Zosyn, fluids. Blood work shows elevation white blood cell count. Lactic acid within normal limits. CT abdomen pelvis shows cellulitic changes but no obvious fascial defect. We will admit the patient for further care and disposition of this time. Patient was given Napoleon for pain control. Abdomen/Pelvis CT 07/23/18 21:23 IMPRESSION: 1. Skin thickening and inflammatory stranding with ill-defined fluid collection within the anterior abdominal wall. This likely is postoperative seroma versus hematoma. Abscess cannot totally be excluded. 2. uterus with fluid and gas within the endometrial canal. This again likely related to her post gravid state. However, endometritis cannot be excluded. 3. Hepatomegaly. D/ / Evan Mcdaniel MD / Evan Mcdaniel MD Interpreting Provider: Evan Mcdaniel MD Vital Signs Temperature 98.1 F 07/23/18 20:59 Pulse Rate 100 07/23/18 20:59 Respiratory Rate 20 07/23/18 20:59 Blood Pressure 133/71 07/23/18 20:59 O2 Sat by Pulse Oximetry 98 07/23/18 20:59 Temperature 98.1 F 07/23/18 21:05 Pulse Rate 100 07/23/18 23:12 Respiratory Rate 18 07/23/18 23:12 Blood Pressure 124/65 07/23/18 23:12 O2 Sat by Pulse Oximetry 95 07/23/18 23:12 Oxygen Delivery Oxygen Delivery Room Air Medical Decision Making - MDM Narrative Medical decision making narrative: Patient was a sign out from previous team and Dr. vizcarra and Dr. Britton. Please see their notes for any additional detail. In summary, patient is here for post infection. She is around 10 days status post for breech presentation. She was discharged with a surgical site drain. She was also sent home with oral antibiotics. She has noted some foul smelling drainage and erythema developing around her surgical incision site. Redness has extended up to the umbilical region at this time. Physical exam shows induration around the surgical incision site, active pus drainage, erythema going up to the umbilical region. Previous team spoke with [employer] health and fitness coach, Dr. Huizar, who requested CT abdomen and pelvis to assess for any fascial defect. Previous team and also ordered basic bloodwork, septic workup, they can Zosyn, fluids. Blood work shows elevation white blood cell count. Lactic acid within normal limits. CT abdomen pelvis shows cellulitic changes but no obvious fascial defect. We will admit the patient for further care and disposition of this time. Patient was given Napoleon for pain control. - Medical Records Medical records reviewed: Yes I reviewed the patient's medical records. - Lab Data Lab results reviewed: Yes I reviewed the patient's lab results. Result diagrams: 07/23/18 22:03 07/23/18 22:03 Lab Results 07/23/18 07/23/18 07/23/18 Range/Units 22:03 22:03 22:03 WBC 15.7 H (4.3-11.1) K/mcL RBC 3.28 L (3.82-4.97) M/mcL Hgb 9.1 L (11.5-15.4) g/dL Hct 28.0 L (35.3-44.9) % MCV 85.4 (83.0-100.0) fL MCH 27.7 L (28.0-33.3) pg MCHC 32.5 (31.6-35.5) g/dL RDW 13.4 (11.5-14.5) % Plt Count 410 H (140-400) K/mcL MPV 9.1 L (9.4-12.4) fL Immature Gran % 0.6 (0-4) % Seg Neutrophils % 78.7 % Lymphocytes % 15.3 % Monocytes % 4.6 % Eosinophils % 0.4 % Basophils % 0.4 % Neutrophils # 12.3 H (1.6-8.9) K/mcL Lymphocytes # 2.4 (0.6-4.6) K/mcL Monocytes # 0.7 (0.0-1.3) K/mcL Eosinophils # 0.1 (0.0-0.6) K/mcL Basophils # 0.1 (0.0-0.2) K/mcL Nucleated RBCs/100 WBC 0.1 H (0) /100 WBC PT 13.1 H (9.4-12.1) Seconds INR 1.2 APTT 47.8 H (26.0-36.0) Seconds VBG pH (7.32-7.42) pH Units VBG pCO2 (41-51) mmHg VBG pO2 (25-50) mmHg VBG HCO3 (21-27) mEq/L Sodium 135 L (136-145) mEq/L Potassium 3.5 (3.5-5.1) mEq/L Chloride 103 (98-107) mEq/L Carbon Dioxide 21 L (23-29) mEq/L BUN 9 (6-20) mg/dL Creatinine 0.65 (0.60-1.20) mg/dL Est GFR ( Amer) > 60 (> 60) Est GFR (Non-Af Amer) > 60 (> 60) BUN/Creatinine Ratio 14 (6-26) Glucose 106 H (70-105) mg/dL Calculated Osmolality 279 L (280-300) Lactic Acid (0.5-2.2) mmol/L Calcium 8.3 L (8.6-10.3) mg/dL Phosphorus 3.4 (2.7-4.5) mg/dL Magnesium 1.9 (1.6-2.6) mg/dL Total Bilirubin 0.4 (0.3-1.0) mg/dL Direct Bilirubin 0.1 (0.0-0.2) mg/dL Indirect Bilirubin 0.3 (0.0-1.2) mg/dL AST 11 L (13-39) Units/L ALT 12 (7-52) Units/L Alkaline Phosphatase 93 (34-104) Units/L Troponin I < 0.03 (< 0.04) ng/mL Serum Total Protein 6.1 L (6.4-8.9) g/dL Albumin 3.0 L (3.5-5.7) g/dL Globulin 3.1 (2.4-3.5) g/dL Albumin/Globulin Ratio 1.0 L (1.1-2.2) Urine Color (Yellow) Urine Clarity (Clear) Urine pH (5.0-8.0) pH Units Ur Specific [place] (1.010-1.025) Urine Protein (Neg-Trace) mg/dL Urine Glucose (UA) (Normal) mg/dL Urine Ketones (Negative) mg/dL Urine Blood (Negative) Urine Nitrite (Negative) Urine Bilirubin (Negative) Urine Urobilinogen (Normal) mg/dL Ur Leukocyte Esterase (Negative) Urine Microscopic RBC (0-3) per hpf Urine Microscopic WBC (0-3) per hpf Ur Squamous Epith Cells (None-Few) per lpf Urine Bacteria (None-Few) per hpf Hyaline Casts (None-Few) per lpf Ur Culture Indicated? (NO) Blood Type Antibody Screen 07/23/18 07/23/18 07/23/18 Range/Units 22:03 22:03 22:17 WBC (4.3-11.1) K/mcL RBC (3.82-4.97) M/mcL Hgb (11.5-15.4) g/dL Hct (35.3-44.9) % MCV (83.0-100.0) fL MCH (28.0-33.3) pg MCHC (31.6-35.5) g/dL RDW (11.5-14.5) % Plt Count (140-400) K/mcL MPV (9.4-12.4) fL Immature Gran % (0-4) % Seg Neutrophils % % Lymphocytes % % Monocytes % % Eosinophils % % Basophils % % Neutrophils # (1.6-8.9) K/mcL Lymphocytes # (0.6-4.6) K/mcL Monocytes # (0.0-1.3) K/mcL Eosinophils # (0.0-0.6) K/mcL Basophils # (0.0-0.2) K/mcL Nucleated RBCs/100 WBC (0) /100 WBC PT (9.4-12.1) Seconds INR APTT (26.0-36.0) Seconds VBG pH 7.40 (7.32-7.42) pH Units VBG pCO2 40 L (41-51) mmHg VBG pO2 81 H (25-50) mmHg VBG HCO3 25 (21-27) mEq/L Sodium (136-145) mEq/L Potassium (3.5-5.1) mEq/L Chloride (98-107) mEq/L Carbon Dioxide (23-29) mEq/L BUN (6-20) mg/dL Creatinine (0.60-1.20) mg/dL Est GFR ( Amer) (> 60) Est GFR (Non-Af Amer) (> 60) BUN/Creatinine Ratio (6-26) Glucose (70-105) mg/dL Calculated Osmolality (280-300) Lactic Acid 1.6 (0.5-2.2) mmol/L Calcium (8.6-10.3) mg/dL Phosphorus (2.7-4.5) mg/dL Magnesium (1.6-2.6) mg/dL Total Bilirubin (0.3-1.0) mg/dL Direct Bilirubin (0.0-0.2) mg/dL Indirect Bilirubin (0.0-1.2) mg/dL AST (13-39) Units/L ALT (7-52) Units/L Alkaline Phosphatase (34-104) Units/L Troponin I (< 0.04) ng/mL Serum Total Protein (6.4-8.9) g/dL Albumin (3.5-5.7) g/dL Globulin (2.4-3.5) g/dL Albumin/Globulin Ratio (1.1-2.2) Urine Color (Yellow) Urine Clarity (Clear) Urine pH (5.0-8.0) pH Units Ur Specific [place] (1.010-1.025) Urine Protein (Neg-Trace) mg/dL Urine Glucose (UA) (Normal) mg/dL Urine Ketones (Negative) mg/dL Urine Blood (Negative) Urine Nitrite (Negative) Urine Bilirubin (Negative) Urine Urobilinogen (Normal) mg/dL Ur Leukocyte Esterase (Negative) Urine Microscopic RBC (0-3) per hpf Urine Microscopic WBC (0-3) per hpf Ur Squamous Epith Cells (None-Few) per lpf Urine Bacteria (None-Few) per hpf Hyaline Casts (None-Few) per lpf Ur Culture Indicated? (NO) Blood Type O POSITIVE Antibody Screen NEGATIVE 07/23/18 Range/Units 22:26 WBC (4.3-11.1) K/mcL RBC (3.82-4.97) M/mcL Hgb (11.5-15.4) g/dL Hct (35.3-44.9) % MCV (83.0-100.0) fL MCH (28.0-33.3) pg MCHC (31.6-35.5) g/dL RDW (11.5-14.5) % Plt Count (140-400) K/mcL MPV (9.4-12.4) fL Immature Gran % (0-4) % Seg Neutrophils % % Lymphocytes % % Monocytes % % Eosinophils % % Basophils % % Neutrophils # (1.6-8.9) K/mcL Lymphocytes # (0.6-4.6) K/mcL Monocytes # (0.0-1.3) K/mcL Eosinophils # (0.0-0.6) K/mcL Basophils # (0.0-0.2) K/mcL Nucleated RBCs/100 WBC (0) /100 WBC PT (9.4-12.1) Seconds INR APTT (26.0-36.0) Seconds VBG pH (7.32-7.42) pH Units VBG pCO2 (41-51) mmHg VBG pO2 (25-50) mmHg VBG HCO3 (21-27) mEq/L Sodium (136-145) mEq/L Potassium (3.5-5.1) mEq/L Chloride (98-107) mEq/L Carbon Dioxide (23-29) mEq/L BUN (6-20) mg/dL Creatinine (0.60-1.20) mg/dL Est GFR ( Amer) (> 60) Est GFR (Non-Af Amer) (> 60) BUN/Creatinine Ratio (6-26) Glucose (70-105) mg/dL Calculated Osmolality (280-300) Lactic Acid (0.5-2.2) mmol/L Calcium (8.6-10.3) mg/dL Phosphorus (2.7-4.5) mg/dL Magnesium (1.6-2.6) mg/dL Total Bilirubin (0.3-1.0) mg/dL Direct Bilirubin (0.0-0.2) mg/dL Indirect Bilirubin (0.0-1.2) mg/dL AST (13-39) Units/L ALT (7-52) Units/L Alkaline Phosphatase (34-104) Units/L Troponin I (< 0.04) ng/mL Serum Total Protein (6.4-8.9) g/dL Albumin (3.5-5.7) g/dL Globulin (2.4-3.5) g/dL Albumin/Globulin Ratio (1.1-2.2) Urine Color Dark Yellow (Yellow) Urine Clarity Cloudy A (Clear) Urine pH 6.5 (5.0-8.0) pH Units Ur Specific [place] 1.008 L (1.010-1.025) Urine Protein Trace (Neg-Trace) mg/dL Urine Glucose (UA) Normal (Normal) mg/dL Urine Ketones Negative (Negative) mg/dL Urine Blood Large H (Negative) Urine Nitrite Negative (Negative) Urine Bilirubin Negative (Negative) Urine Urobilinogen Normal (Normal) mg/dL Ur Leukocyte Esterase Large H (Negative) Urine Microscopic RBC 5-15 H (0-3) per hpf Urine Microscopic WBC TNTC H (0-3) per hpf Ur Squamous Epith Cells Many H (None-Few) per lpf Urine Bacteria None Seen (None-Few) per hpf Hyaline Casts None Seen (None-Few) per lpf Ur Culture Indicated? NO. A (NO) Blood Type Antibody Screen - Radiology Data Radiology results reviewed: Yes I reviewed the patient's radiology results. Abdomen/Pelvis CT 07/23/18 21:23 IMPRESSION: 1. Skin thickening and inflammatory stranding with ill-defined fluid collection within the anterior abdominal wall. This likely is postoperative seroma versus hematoma. Abscess cannot totally be excluded. 2. uterus with fluid and gas within the endometrial canal. This again likely related to her post gravid state. However, endometritis cannot be excluded. 3. Hepatomegaly. D/ / Evan Mcdaniel MD / Evan Mcdaniel MD Interpreting Provider: Evan Mcdaniel MD - EKG Data EKG #1 EKG attestation: Yes I reviewed and interpreted this EKG. S.B.A.R. - S.B.A.R. Situation: Demographics, MOA Background: Presenting Complaint Assessment: Vital Signs, Course and respsone to treatment, Exam Concerns, Patient/Family Expectation, Pertinant Lab Results Recommendation: Barrier(s) to disposition, Recommendation based on pending studies, treatments, or consults S.B.A.R. Report Given to: Dr. Huizar Attestation Statement - Attestation Attestation: Resident Attestation: I examined this patient and my medical decision making was reviewed with the Resident Physician. I agree with the documented findings, disposition and treatment plan as described except to the extent set forth below. We independently had [id number] contact with the patient. Pt seen with Resident Physician Dr. Davis. Please see resident note for further details and disposition. Patient taken over at sign out from Dr. Vizcarra. The case has already been discussed with [employer]. CAT scan is pending to rule out other pathology other than cellulitis and abscess. Rule out fascial defect requiring general surgery and rule out necrotizing infection. CT scan results with no sign of fascial defect or necrotizing infection. Possible endometritis as well as cellulitis and possible abscess. Patient has artery received vancomycin and Zosyn. Patient was evaluated at bedside. Patient requesting Vicodin for pain. Vicodin prescribed. Patient safe for the floor. Discussed with [employer] team. Patient accepted for admission.
[2018-07-23 22:26] LABS: INR 1.2; Prothrombin Time 13.1 Seconds (9.4-12.1)
[2018-07-23 22:29] LABS: Activated Partial Thrombo Time 47.8 Seconds (26.0-36.0)
[2018-07-23 22:34] LABS: Bilirubin,Urine Negative (Negative); Blood,Urine Large (Negative); Clarity,Urine Cloudy (Clear); Color,Urine Dark Yellow (Yellow); Glucose,Urine (UA) Normal (Normal); Ketones,Urine Negative (Negative); Leukocyte Esterase,Urine Large (Negative); Nitrite,Urine Negative (Negative); PH,Urine 6.5 pH Units (5.0-8.0); Protein,Urine Trace mg/dL (Neg-Trace); Specific Gravity,Urine 1.008 (1.010-1.025); Urobilinogen,Urine Normal (Normal)
[2018-07-23 22:36] LABS: Bacteria,Urine None Seen per hpf (None-Few); Hyaline Casts,Urine None Seen per lpf (None-Few); Squamous Epithelial Cell,Urine Many per lpf (None-Few); WBC,Urine TNTC per hpf (0-3)
[2018-07-23 22:41] LABS: Alanine Aminotransferase 12 Units/L (7-52); Alkaline Phosphatase 93 Units/L (34-104); Aspartate Amino Transferase 11 Units/L (13-39); BUN/Creatinine Ratio 14 (6-26); Bilirubin,Direct 0.1 mg/dL (0.0-0.2); Bilirubin,Indirect 0.3 mg/dL (0.0-1.2); Bilirubin,Total 0.4 mg/dL (0.3-1.0); Blood Urea Nitrogen 9 mg/dL (6-20); Calcium 8.3 mg/dL (8.6-10.3); Carbon Dioxide 21 mEq/L (23-29); Chloride 103 mEq/L (98-107); Globulin 3.1 g/dL (2.4-3.5); Glucose 106 mg/dL (70-105); Magnesium 1.9 mg/dL (1.6-2.6); Osmolality,Calculated 279 (280-300); Phosphorous 3.4 mg/dL (2.7-4.5); Potassium 3.5 mEq/L (3.5-5.1); Sodium 135 mEq/L (136-145); Total Protein 6.1 g/dL (6.4-8.9); Troponin I < 0.03 ng/mL (< 0.04); eGFR For Non-African Americans > 60 (> 60)
[2018-07-23] MEDS ORDERED: *HR* HYDROcodone/Acet 5/325 mg TABLET PO ONE (23:36)
[2018-07-24] MEDS ORDERED: Ringers Solution, Lactated 1,000 ML IVC SCH (02:00)
--- NOTE | 2018-07-24 02:46 | OB/GYN History & Physical ---
Date of Encounter: 07/24/18 Time of Encounter: 02:43 Assessment and Plan (1) delivery delivered Current visit: No Status: Acute 28 y/o s/p PC/S for breech, POD #11, morbdid obesity, surgical site infection/cellulitis PE: abdominal exam shows extensive cellulitis and induration around the incision with foul smelling discharge, chapis in place Gen Surg consult placed, will continue on Zosyn and Vanc, repeat labs in the PM, NPO for now History of Present Illness HPI: Ms. Moeller is a 28 year old female who presented to the ED with incisional pain and drainage after her 11 days ago. She denies fever, chills or other systemic signs of infection. Past Med Surg Social Fam HX - Past Medical History Medical history: hyperlipidemia, thyroid disease, other Additional medical history: HYPOTHYROID, HIGH CHOLESTEROL, Psychiatric history: no psych history - Past Surgical History Additional surgical history: TUBES IN EARS, ADENOIDS REMOVED - Social History Smoking Status: Current every day smoker Smokeless Tobacco Status: No Alcohol use: none Drug use: opiates, marijuana - Family History Mother Family Member Ethnicity: Non- Living Status: Still Living Hx Family Cardiac Disorders: Yes Hx Family Endocrine Disorder: Yes (Thyroid, DM) Medications and Allergies RX: Albuterol Sulfate [Proair Respiclick] 1 - 2 puff IH Q4-6H PRN 10/03/15 [History] RX: Gabapentin [Neurontin] 600 mg PO QID 10/03/15 [History] RX: Levothyroxine [Synthroid] 150 mcg PO QAM 10/03/15 [History] Subutex 8 mg SL BID 06/15/18 [History] RX: Azithromycin [Zithromax] 500 mg PO Q24H #7 tablet 07/15/18 [Rx] RX: Clindamycin [Cleocin] 300 mg PO Q8H #21 capsule 07/15/18 [Rx] Allergy/AdvReac Type Severity Reaction Status Date / Time cephalexin [From Keflex] AdvReac Difficulty Verified 07/24/18 03:12 Breathing tramadol AdvReac Itching Verified 07/24/18 03:12 Exam - Vital Signs Vital signs: Initial Vital Signs Temp Pulse Resp BP Pulse Ox 98.1 F 100 20 133/71 98 07/23/18 20:59 07/23/18 20:59 07/23/18 20:59 07/23/18 20:59 07/23/18 20:59 Results Result Diagrams: 07/23/18 22:03 07/23/18 22:03 Abnormal lab results WBC 15.7 K/mcL (4.3-11.1) H 07/23/18 22:03 RBC 3.28 M/mcL (3.82-4.97) L 07/23/18 22:03 Hgb 9.1 g/dL (11.5-15.4) L 07/23/18 22:03 Hct 28.0 % (35.3-44.9) L 07/23/18 22:03 MCH 27.7 pg (28.0-33.3) L 07/23/18 22:03 Plt Count 410 K/mcL (140-400) H 07/23/18 22:03 MPV 9.1 fL (9.4-12.4) L 07/23/18 22:03 Neutrophils # 12.3 K/mcL (1.6-8.9) H 07/23/18 22:03 Nucleated RBCs/100 WBC 0.1 /100 WBC (0) H 07/23/18 22:03 PT 13.1 Seconds (9.4-12.1) H 07/23/18 22:03 APTT 47.8 Seconds (26.0-36.0) H 07/23/18 22:03 VBG pCO2 40 mmHg (41-51) L 07/23/18 22:17 VBG pO2 81 mmHg (25-50) H 07/23/18 22:17 Sodium 135 mEq/L (136-145) L 07/23/18 22:03 Carbon Dioxide 21 mEq/L (23-29) L 07/23/18 22:03 Glucose 106 mg/dL (70-105) H 07/23/18 22:03 Calculated Osmolality 279 (280-300) L 07/23/18 22:03 Calcium 8.3 mg/dL (8.6-10.3) L 07/23/18 22:03 AST 11 Units/L (13-39) L 07/23/18 22:03 Serum Total Protein 6.1 g/dL (6.4-8.9) L 07/23/18 22:03 Albumin 3.0 g/dL (3.5-5.7) L 07/23/18 22:03 Albumin/Globulin Ratio 1.0 (1.1-2.2) L 07/23/18 22:03 Urine Clarity Cloudy (Clear) A 07/23/18 22:26 Ur Specific [place] 1.008 (1.010-1.025) L 07/23/18 22:26 Urine Blood Large (Negative) H 07/23/18 22:26 Ur Leukocyte Esterase Large (Negative) H 07/23/18 22:26 Urine Microscopic RBC 5-15 per hpf (0-3) H 07/23/18 22:26 Urine Microscopic WBC TNTC per hpf (0-3) H 07/23/18 22:26 Ur Squamous Epith Cells Many per lpf (None-Few) H 07/23/18 22:26 Ur Culture Indicated? NO. (NO) A 07/23/18 22:26 All other labs normal.
[2018-07-24] MEDS ORDERED: Ketorolac 30 MG/ML VIAL IVP PRN (02:52)
[2018-07-24] MEDS ORDERED: Piperacillin/Tazobactam 3.375 GM in 0.9 % Sodium Chloride Mini Bag 100 ML IVPB SCH (08:00)
[2018-07-24 08:41] VITALS: BP 120/75
[2018-07-24] MEDS ORDERED: Gabapentin 300 MG CAPSULE PO SCH (09:30)
--- NOTE | 2018-07-24 10:29 | Event Note ---
Date of Encounter: 07/24/18 Time of Encounter: 10:16 I have been in to see the patient. She was admitted by Dr. Huizar and care has been initiated. Dr. Huizar requested a surgical consult did call the surgeon economic history teacher for him. I have contacted Dr. ahmadi and he has agreed to come see the patient. The patient wants to leave AGAINST MEDICAL ADVICE due to the need for her Subutex. She gets her care at an outside institution and can only take her own prescription which she did not bring with her. She states she is the only one that can drive her car. I have ordered a social service consult to help her with this concern and have spoken with Papa Rodriguez. She has been afebrile and has been started on vancomycin and Zosyn. The cellulitis has decreased by the previous marke done in the emergency department and I remarked it with black pen and dated and timed it.. Her incision is draining serosanguineous cloudy fluid without odor. I did probe the incision with a sterile Q-tip and a large amount of fluid was seen. I was able to confirm that the fascia was intact with probing. Cultures were obtained. Iodoform gauze was placed within the wound. The patient also desires to be light outside to smoke and it was explained to her why she cannot do this. She has declined a nicotine patch. She has been nothing by mouth but I have no plans for her to go to surgery at this time and I will start her on a regular diet.
--- NOTE | 2018-07-24 11:34 | Discharge Summary ---
Date of Encounter: 07/24/18 Time of Encounter: 11:40 - Discharge Diagnosis (1) Postoperative wound infection Priority: Primary Status: Acute Comments: The patient is refusing to stay for IV vancomycin and Zosyn. She then refused to stay for currently ready to hang vancomycin. Social work consult was made to help with patient issues with staying. Patient has signed AMA forms and is refusing even wait to have her IV removed. (2) delivery delivered Priority: Secondary Status: Acute Comments: POD 10 w/ Dr Cantu - Discharge Medications Prescriptions: levoFLOXacin [Levaquin] 500 mg PO DAILY #14 tablet RX: metroNIDAZOLE [Flagyl] 500 mg PO BID #28 tablet Home Medications: RX: Albuterol Sulfate [Proair Respiclick] 1 - 2 puff IH Q4-6H PRN 10/03/15 [History] RX: Gabapentin [Neurontin] 600 mg PO QID 10/03/15 [History] RX: Levothyroxine [Synthroid] 150 mcg PO QAM 10/03/15 [History] Subutex 8 mg SL BID 06/15/18 [History] RX: Azithromycin [Zithromax] 500 mg PO Q24H #7 tablet 07/15/18 [Rx] RX: Clindamycin [Cleocin] 300 mg PO Q8H #21 capsule 07/15/18 [Rx] RX: metroNIDAZOLE [Flagyl] 500 mg PO BID #28 tablet 07/24/18 [Rx] levoFLOXacin [Levaquin] 500 mg PO DAILY #14 tablet 07/24/18 [Rx] Allergies/Adverse Reactions: Allergy/AdvReac Type Severity Reaction Status Date / Time cephalexin [From Keflex] AdvReac Difficulty Verified 07/24/18 03:12 Breathing tramadol AdvReac Itching Verified 07/24/18 03:12 Data Procedures and tests throughout hospitalization: Laboratory Tests 07/23/18 07/23/18 07/23/18 22:03 22:03 22:03 WBC 15.7 H RBC 3.28 L Hgb 9.1 L Hct 28.0 L MCV 85.4 MCH 27.7 L MCHC 32.5 RDW 13.4 Plt Count 410 H MPV 9.1 L Immature Gran % 0.6 Seg Neutrophils % 78.7 Lymphocytes % 15.3 Monocytes % 4.6 Eosinophils % 0.4 Basophils % 0.4 Neutrophils # 12.3 H Lymphocytes # 2.4 Monocytes # 0.7 Eosinophils # 0.1 Basophils # 0.1 Nucleated RBCs/100 WBC 0.1 H PT 13.1 H INR 1.2 APTT 47.8 H VBG pH VBG pCO2 VBG pO2 VBG HCO3 Sodium 135 L Potassium 3.5 Chloride 103 Carbon Dioxide 21 L BUN 9 Creatinine 0.65 Est GFR ( Amer) > 60 Est GFR (Non-Af Amer) > 60 BUN/Creatinine Ratio 14 Glucose 106 H Calculated Osmolality 279 L Lactic Acid Calcium 8.3 L Phosphorus 3.4 Magnesium 1.9 Total Bilirubin 0.4 Direct Bilirubin 0.1 Indirect Bilirubin 0.3 AST 11 L ALT 12 Alkaline Phosphatase 93 Troponin I < 0.03 Serum Total Protein 6.1 L Albumin 3.0 L Globulin 3.1 Albumin/Globulin Ratio 1.0 L Urine Color Urine Clarity Urine pH Ur Specific Dixon Urine Protein Urine Glucose (UA) Urine Ketones Urine Blood Urine Nitrite Urine Bilirubin Urine Urobilinogen Ur Leukocyte Esterase Urine Microscopic RBC Urine Microscopic WBC Ur Squamous Epith Cells Urine Bacteria Hyaline Casts Ur Culture Indicated? Blood Type Antibody Screen 07/23/18 07/23/18 07/23/18 22:03 22:03 22:17 WBC RBC Hgb Hct MCV MCH MCHC RDW Plt Count MPV Immature Gran % Seg Neutrophils % Lymphocytes % Monocytes % Eosinophils % Basophils % Neutrophils # Lymphocytes # Monocytes # Eosinophils # Basophils # Nucleated RBCs/100 WBC PT INR APTT VBG pH 7.40 VBG pCO2 40 L VBG pO2 81 H VBG HCO3 25 Sodium Potassium Chloride Carbon Dioxide BUN Creatinine Est GFR ( Amer) Est GFR (Non-Af Amer) BUN/Creatinine Ratio Glucose Calculated Osmolality Lactic Acid 1.6 Calcium Phosphorus Magnesium Total Bilirubin Direct Bilirubin Indirect Bilirubin AST ALT Alkaline Phosphatase Troponin I Serum Total Protein Albumin Globulin Albumin/Globulin Ratio Urine Color Urine Clarity Urine pH Ur Specific [place] Urine Protein Urine Glucose (UA) Urine Ketones Urine Blood Urine Nitrite Urine Bilirubin Urine Urobilinogen Ur Leukocyte Esterase Urine Microscopic RBC Urine Microscopic WBC Ur Squamous Epith Cells Urine Bacteria Hyaline Casts Ur Culture Indicated? Blood Type O POSITIVE Antibody Screen NEGATIVE 07/23/18 22:26 WBC RBC Hgb Hct MCV MCH MCHC RDW Plt Count MPV Immature Gran % Seg Neutrophils % Lymphocytes % Monocytes % Eosinophils % Basophils % Neutrophils # Lymphocytes # Monocytes # Eosinophils # Basophils # Nucleated RBCs/100 WBC PT INR APTT VBG pH VBG pCO2 VBG pO2 VBG HCO3 Sodium Potassium Chloride Carbon Dioxide BUN Creatinine Est GFR ( Amer) Est GFR (Non-Af Amer) BUN/Creatinine Ratio Glucose Calculated Osmolality Lactic Acid Calcium Phosphorus Magnesium Total Bilirubin Direct Bilirubin Indirect Bilirubin AST ALT Alkaline Phosphatase Troponin I Serum Total Protein Albumin Globulin Albumin/Globulin Ratio Urine Color Dark Yellow Urine Clarity Cloudy A Urine pH 6.5 Ur Specific [place] 1.008 L Urine Protein Trace Urine Glucose (UA) Normal Urine Ketones Negative Urine Blood Large H Urine Nitrite Negative Urine Bilirubin Negative Urine Urobilinogen Normal Ur Leukocyte Esterase Large H Urine Microscopic RBC 5-15 H Urine Microscopic WBC TNTC H Ur Squamous Epith Cells Many H Urine Bacteria None Seen Hyaline Casts None Seen Ur Culture Indicated? NO. A Blood Type Antibody Screen Labs on day of discharge: Labs from last 24 hours 07/23/18 07/23/18 07/23/18 22:26 22:17 22:03 WBC RBC Hgb Hct MCV MCH MCHC RDW Plt Count MPV Immature Gran % Seg Neutrophils % Lymphocytes % Monocytes % Eosinophils % Basophils % Neutrophils # Lymphocytes # Monocytes # Eosinophils # Basophils # Nucleated RBCs/100 WBC PT INR APTT VBG pH 7.40 VBG pCO2 40 L VBG pO2 81 H VBG HCO3 25 Sodium Potassium Chloride Carbon Dioxide BUN Creatinine Est GFR ( Amer) Est GFR (Non-Af Amer) BUN/Creatinine Ratio Glucose Calculated Osmolality Lactic Acid Calcium Phosphorus Magnesium Total Bilirubin Direct Bilirubin Indirect Bilirubin AST ALT Alkaline Phosphatase Troponin I Serum Total Protein Albumin Globulin Albumin/Globulin Ratio Urine Color Dark Yellow Urine Clarity Cloudy A Urine pH 6.5 Ur Specific [place] 1.008 L Urine Protein Trace Urine Glucose (UA) Normal Urine Ketones Negative Urine Blood Large H Urine Nitrite Negative Urine Bilirubin Negative Urine Urobilinogen Normal Ur Leukocyte Esterase Large H Urine Microscopic RBC 5-15 H Urine Microscopic WBC TNTC H Ur Squamous Epith Cells Many H Urine Bacteria None Seen Hyaline Casts None Seen Ur Culture Indicated? NO. A Blood Type O POSITIVE Antibody Screen NEGATIVE 07/23/18 07/23/18 07/23/18 22:03 22:03 22:03 WBC RBC Hgb Hct MCV MCH MCHC RDW Plt Count MPV Immature Gran % Seg Neutrophils % Lymphocytes % Monocytes % Eosinophils % Basophils % Neutrophils # Lymphocytes # Monocytes # Eosinophils # Basophils # Nucleated RBCs/100 WBC PT 13.1 H INR 1.2 APTT 47.8 H VBG pH VBG pCO2 VBG pO2 VBG HCO3 Sodium 135 L Potassium 3.5 Chloride 103 Carbon Dioxide 21 L BUN 9 Creatinine 0.65 Est GFR ( Amer) > 60 Est GFR (Non-Af Amer) > 60 BUN/Creatinine Ratio 14 Glucose 106 H Calculated Osmolality 279 L Lactic Acid 1.6 Calcium 8.3 L Phosphorus 3.4 Magnesium 1.9 Total Bilirubin 0.4 Direct Bilirubin 0.1 Indirect Bilirubin 0.3 AST 11 L ALT 12 Alkaline Phosphatase 93 Troponin I < 0.03 Serum Total Protein 6.1 L Albumin 3.0 L Globulin 3.1 Albumin/Globulin Ratio 1.0 L Urine Color Urine Clarity Urine pH Ur Specific [place] Urine Protein Urine Glucose (UA) Urine Ketones Urine Blood Urine Nitrite Urine Bilirubin Urine Urobilinogen Ur Leukocyte Esterase Urine Microscopic RBC Urine Microscopic WBC Ur Squamous Epith Cells Urine Bacteria Hyaline Casts Ur Culture Indicated? Blood Type Antibody Screen 07/23/18 22:03 WBC 15.7 H RBC 3.28 L Hgb 9.1 L Hct 28.0 L MCV 85.4 MCH 27.7 L MCHC 32.5 RDW 13.4 Plt Count 410 H MPV 9.1 L Immature Gran % 0.6 Seg Neutrophils % 78.7 Lymphocytes % 15.3 Monocytes % 4.6 Eosinophils % 0.4 Basophils % 0.4 Neutrophils # 12.3 H Lymphocytes # 2.4 Monocytes # 0.7 Eosinophils # 0.1 Basophils # 0.1 Nucleated RBCs/100 WBC 0.1 H PT INR APTT VBG pH VBG pCO2 VBG pO2 VBG HCO3 Sodium Potassium Chloride Carbon Dioxide BUN Creatinine Est GFR ( Amer) Est GFR (Non-Af Amer) BUN/Creatinine Ratio Glucose Calculated Osmolality Lactic Acid Calcium Phosphorus Magnesium Total Bilirubin Direct Bilirubin Indirect Bilirubin AST ALT Alkaline Phosphatase Troponin I Serum Total Protein Albumin Globulin Albumin/Globulin Ratio Urine Color Urine Clarity Urine pH Ur Specific [place] Urine Protein Urine Glucose (UA) Urine Ketones Urine Blood Urine Nitrite Urine Bilirubin Urine Urobilinogen Ur Leukocyte Esterase Urine Microscopic RBC Urine Microscopic WBC Ur Squamous Epith Cells Urine Bacteria Hyaline Casts Ur Culture Indicated? Blood Type Antibody Screen Preliminary micro results at discharge 07/23/18 21:43 Blood Culture - Preliminary Peripheral Venipuncture Culture is incubating and being continuously monitored for growth. Final report to follow. 07/23/18 22:03 Blood Culture - Preliminary Peripheral Venipuncture Culture is incubating and being continuously monitored for growth. Final report to follow. - Impressions ITS Impressions Abdomen/Pelvis CT 07/23/18 21:23 IMPRESSION: 1. Skin thickening and inflammatory stranding with ill-defined fluid collection within the anterior abdominal wall. This likely is postoperative seroma versus hematoma. Abscess cannot totally be excluded. 2. uterus with fluid and gas within the endometrial canal. This again likely related to her post gravid state. However, endometritis cannot be excluded. 3. Hepatomegaly. D/ / Evan Mcdaniel MD / Evan Mcdaniel MD Interpreting Provider: Evan Mcdaniel MD Date of admission: 07/24/18 00:06 Primary care physician: Aj Inman Consults: 07/24/18 04:40 Consult to Surgery [CONS] Stat Consulting Provider: Deon Huizar Reason for Consult: post op wound infection, cellulitis, 18cm ant wall abscess vs seroma Call Completed: No 07/24/18 10:13 Consult to Central Supply Assistant (W&C) [CONS] Stat Reason For Exam: Reason for SW Consult: Pt on Subutex and wants to leave AMA, s/p c/s with wound infection on IV abx Discharging clinician: Gita Hansen - Patient Status Disposition: Left Against Medical Advice Condition: Fair Functional capacity at discharge: independent ambulation Overall status at discharge: patient is not back to baseline - Discharge Instructions Follow Up With: Ever Cantu MD [Partnered Physician] - Additional Instructions: Follow-up with Dr. Cantu as scheduled on 07/25/18. Return to the emergency room should you have a fever 100.5, spreading redness of the incision, increasing drainage from the incision or have worsening incisional pain. Discontinue zithromax and Clindamycin. 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 Hansen. Dr. souza consulted and then surgical consult canceled due to patient's request to leave AGAINST MEDICAL ADVICE Hospital course: Patient refuses to stay for second dose of antibiotics. She has signed informed consent to leave AGAINST MEDICAL ADVICE. She refuses to wait to be given discharge instructions. Time Attestation: Total time spent providing and/or coordinating discharge services: Time Spent: Greater than 30 minutes Exam - Constitutional Vitals: Temp Pulse Resp BP Pulse Ox 97.9 F 85 16 120/75 97 07/24/18 08:40 07/24/18 08:40 07/24/18 08:40 07/24/18 08:40 07/24/18 01:15 General appearance IM: morbidly obese, answers questions appropriately - Respiratory Respiratory exam: Absent: respiratory distress - GI/Abdominal GI/Abdominal exam IM: tenderness, no peritoneal signs Incision: erythematous, skin , warm, other (Draining) - Extremities Exam Extremities exam IM: Present: pedal edema, warm - Neurological Exam Neurological exam: no focal deficits - VTE Reasons for not Prescribing Prophylaxis: Treatment not Indicated - Low risk for VTE
[2018-07-24] MEDS ORDERED: Aminoglycoside Consult 1 EACH MC ONE (11:49)
[2018-07-24 22:07] LABS: Acinetobacter baumannii by PCR Not Detected (Not Detect); Candida albicans by PCR Not Detected (Not Detect); Candida glabrata by PCR Not Detected (Not Detect); Candida krusei by PCR Not Detected (Not Detect); Candida parapsilosis by PCR Not Detected (Not Detect); Candida tropicalis by PCR Not Detected (Not Detect); Enterobacter cloacae Cmplx PCR Not Detected (Not Detect); Enterobacteriaceae by PCR Not Detected (Not Detect); Enterococcus by PCR Not Detected (Not Detect); Escherichia coli by PCR Not Detected (Not Detect); Klebsiella oxytoca by PCR Not Detected (Not Detect); Klebsiella pneumoniae by PCR Not Detected (Not Detect); Proteus by PCR Not Detected (Not Detect); Pseudomonas aeruginosa by PCR Not Detected (Not Detect); Serratia marcescens by PCR Not Detected (Not Detect); Staphylococcus aureus by PCR Not Detected (Not Detect); Staphylococcus by PCR DETECTED (Not Detect); Streptococcus agalactiae(B)PCR Not Detected (Not Detect); Streptococcus by PCR Not Detected (Not Detect); Streptococcus pneumoniae PCR Not Detected (Not Detect); Streptococcus pyogenes (A) PCR Not Detected (Not Detect); blaKPC Carbapenem-Resist Gene Not Detected (Not Detect); mecA Methicillin-Resist Gene DETECTED (Not Detect); vanA/B Vancomycin-Resist Genes Not Detected (Not Detect)
--- NOTE | 2018-07-26 07:55 | Electrocardiograph Report ---
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
== END 2018-07-24 11:50 | disposition left against medical advice (07) ==
LOC: 1NENUOBS 20:57 → EMEROOARM 20:57 → 1NENUOBS 07-24 01:00
PROVIDERS: ADMIT Student in an Organized Health Care Education/Training Program; ATTEND Student in an Organized Health Care Education/Training Program